=== PATIENT | female | born 1995 | race Two or more races ===

== ENCOUNTER → 2019-01-29 | Outpatient (REF) | payer BC ==
[2019-01-29 16:57] LABS: HEMOGLOBIN A1c 5.2 %
== END ==
LOC: M SFHCCLAY 11:07
PROVIDERS: ATTEND Family Medicine
DX: F41.9 Anxiety disorder, unspecified (principal); R63.1 Polydipsia; R35.8 Other polyuria

== ENCOUNTER → 2019-03-05 | Outpatient (REF) | payer BC | LOC: M LAB REF 15:00 | PROVIDERS: ATTEND Internal Medicine Gastroenterology | DX: K58.2 Mixed irritable bowel syndrome (principal) ==

== ENCOUNTER → 2019-04-23 | Outpatient (CLI) | payer BC ==
[2019-04-23 13:42] LABS: BASO # 0.1 10^3/uL (0.0-0.2); BASO % 1.2 % (0.0-1.0); EOS # 0.1 10^3/uL (0.0-0.5); EOS % 1.2 % (0.0-3.0); HEMATOCRIT 40.2 % (36.0-47.0); HEMOGLOBIN 13.7 g/dl (12.0-15.5); LYMPH % 26.9 % (24.0-44.0); MEAN CORPUSCULAR HEMOGLOBIN 31.3 pg (27.0-33.0); MEAN CORPUSCULAR HGB CONC 34.1 g/dl (32.0-36.5); MEAN CORPUSCULAR VOLUME 91.8 fl (80.0-96.0); MONO # 0.5 10^3/uL (0.0-0.8); MONO % 7.1 % (0.0-5.0); NEUTROPHILS # 4.7 10^3/uL (1.5-8.5); NEUTROPHILS % 63.3 % (36.0-66.0); PLATELET COUNT, AUTOMATED 355 10^3/uL (150-450); RED BLOOD COUNT 4.38 10^6/uL (4.00-5.40); WHITE BLOOD COUNT 7.4 10^3/uL (4.0-10.0)
[2019-04-23 14:23] LABS: FREE T4 0.9 NG/DL (0.76-1.46); PROLACTIN 9.7 NG/ML; THYROID STIMULATING HORMONE 0.91 uIU/ML (0.358-3.740)
== END ==
LOC: M LAB 12:42
PROVIDERS: ATTEND Nurse Practitioner Women's Health
DX: N94.4 Primary dysmenorrhea (principal); N92.1 Excessive and frequent menstruation with irregular cycle

== ENCOUNTER → 2019-04-29 | Outpatient (CLI) | payer BC ==
--- NOTE | 2019-04-29 15:26 | REP ---
Clinical: Left lower quadrant pain . Technique: Transabdominal pelvic ultrasound followed by transvaginal examination for better evaluation of the endometrium and adnexa with color Doppler evaluation of the ovaries. Findings: Bladder is unremarkable and measures 5.1 x 3.2 x 4.9 cm . Normal anteverted uterus measures 8.0 x 2.2 x 4.7 cm . The endometrial complex measures 2.9 mm thickness. No discrete uterine or endometrial abnormalities are appreciated. Bilateral ovaries are normal in appearance and vascularity without evidence for torsion. Right ovary measures 3.4 x 1.8 x 2.4 cm and includes 1.2 cm involuting hemorrhagic follicle ; R I = 0.67 . Left ovary measures 2.7 x 2.4 x 2.1 cm ; R I = 0.61 . No pelvic free fluid or adnexal mass lesion . Impression: 1. relatively normal pelvic ultrasound. Electronically Signed by Kalyan Salas MD 04/29/2019 03:18 P
== END ==
LOC: M RAD 13:57
PROVIDERS: ATTEND Obstetrics & Gynecology
DX: R10.32 Left lower quadrant pain (principal); N94.4 Primary dysmenorrhea; R10.2 Pelvic and perineal pain